=== PATIENT | female | born 1990 | race Hispanic/Latino ===

== ENCOUNTER 2023-01-02 11:22 | Inpatient (IN) | payer MEDICAID, SELFPAY ==
[2023-01-02] MEDS ORDERED: hydrALAZINE 20 MG/ML VIAL SLOW IVP PRN (11:57)
[2023-01-02 12:57] LABS: Fetal Membranes Rupture RUPTURE DETECTED (No Rupture)
[2023-01-02] MEDS ORDERED: Tranexamic Acid 1,000 MG/10 ML VIAL IVP PRN (13:17)
[2023-01-02] MEDS ORDERED: Carboprost 250 MCG/ML AMP IM PRN (13:17)
[2023-01-02] MEDS ORDERED: Methylergonovine 0.2 MG/ML VIAL IM PRN (13:17)
[2023-01-02] MEDS ORDERED: Promethazine HCl 25 MG/ML VIAL IM PRN (13:17)
[2023-01-02] MEDS ORDERED: Misoprostol 200 MCG TAB PR PRN (13:17)
[2023-01-02] MEDS ORDERED: Butorphanol Tartrate 1 MG/ML VIAL SLOW IVP PRN (13:17)
[2023-01-02] MEDS ORDERED: fentaNYL 50 mcg/mL 1 mL Vial SLOW IVP PRN (13:17)
[2023-01-02] MEDS ORDERED: Acetaminophen 500 MG TAB PO PRN ×2 (13:17→15:51)
[2023-01-02] MEDS ORDERED: Ondansetron PF 4 MG/2 ML Vial IVP PRN (13:17)
[2023-01-02] MEDS ORDERED: Diphenoxylate HCl/Atropine Tablet PO PRN (13:17)
[2023-01-02] MEDS ORDERED: Azithromycin 1,000 MG in Sodium Chloride 0.9% 250 ML 250 ML IVPB SCH (13:30)
[2023-01-02] MEDS ORDERED: Magnesium Sulfate 20 gm/500 ml 20 GM/500 ML BAG IVPB SCH (13:30)
[2023-01-02] MEDS ORDERED: Oxytocin 30 units/NS 500 ML 500 ML IV SCH (13:30)
[2023-01-02 13:57] VITALS: BMI 40.9
[2023-01-02] MEDS ORDERED: Magnesium Sulfate 20 gm/500 ml 20 GM/500 ML BAG ONE (14:49)
[2023-01-02] MEDS: Betamet Acet/Betamet Na Ph 30 MG/5 ML VIAL IM SCH (14:54)
[2023-01-02] MEDS: CEFAZOLIN 2 GM in Sodium Chloride 0.9% 100 ML IVPB SCH ×2 (14:55→23:00)
[2023-01-02] MEDS ORDERED: Azithromycin 1,000 MG, Admixture Fee 1 EACH in Sodium Chloride 0.9% 500 ML IVPB SCH (15:00)
[2023-01-02 15:48] LABS: #Eosinphils 0.1 10x3/uL (0.0-0.5); #Monocytes 0.4 10x3/uL (0.0-1.1); #Neutrophils 4.5 10x3/uL (1.5-8.4); %Basophils 0.2 % (0.0-2.0); %Lymphocytes 14.6 % (18.0-47.0); %Monocytes 6.4 % (0.0-10.0); %Neutrophils 77.5 % (40.0-75.0); Hematocrit 36.1 % (34.9-44.5); Hemoglobin 12.7 g/dL (12.0-15.5); Mean Corpuscular HGB CONC 35.2 g/dL (32.0-36.0); Mean Corpuscular Hemoglobin 32.8 pg (27.0-33.0); Mean Corpuscular Volume 93.3 fl (81.6-98.3); Mean Platelet Volume 10.6 fl (7.4-10.4); Platelet Count 249 10x3/uL (150-450); RBC Distribution Width 11.9 % (11.5-14.5); Red Blood Cell (RBC) Count 3.87 10x6/uL (3.90-5.03); White Blood Cell (WBC) Count 5.8 10x3/uL (3.5-10.5)
[2023-01-02] MEDS ORDERED: Indomethacin 25 mg Capsule PO PRN (15:53)
[2023-01-02] MEDS ORDERED: Lactated Ringer's 1,000 ML IV SCH (16:00)
[2023-01-02 16:18] LABS: Syphilis Antibody Nonreactive (Nonreactive); Syphilis Antibody Index 0.06 S/CO (<1.00 Non-Reactive)
[2023-01-02 16:19] LABS: HBSAg Index 0.14 S/CO (0-0.99); HIV (1/2) Antibody/Antigen Non-Reactive (NonReactive); HIV 1/2 INDEX 0.08 S/CO (<1.00); Hep B Surf Ag - L&D Non-Reactive S/CO (NonReactive)
[2023-01-03] MEDS: CEFAZOLIN 2 GM in Sodium Chloride 0.9% 100 ML IVPB SCH ×2 (06:18→15:27)
[2023-01-03] MEDS: Betamet Acet/Betamet Na Ph 30 MG/5 ML VIAL IM SCH (15:27)
[2023-01-03] MEDS: Lactated Ringer's 1,000 ML IV SCH (19:11)
[2023-01-04] MEDS: Lactated Ringer's 1,000 ML IV SCH ×2 (08:03→11:56)
[2023-01-04] MEDS: CEFAZOLIN 2 GM in Sodium Chloride 0.9% 100 ML IVPB SCH ×2 (08:17→09:37)
[2023-01-04] MEDS: Cephalexin 500 MG CAP PO SCH ×2 (17:20→21:50)
[2023-01-05] MEDS: Cephalexin 500 MG CAP PO SCH ×4 (08:56→21:36)
[2023-01-05] MEDS: Lactated Ringer's 1,000 ML IV SCH ×2 (19:38→19:39)
[2023-01-05] MEDS ORDERED: Docusate 100 MG CAP PO SCH (21:00)
[2023-01-05] MEDS: Docusate Calcium (SURFAK) 240 MG CAP PO SCH (21:36)
[2023-01-06] MEDS: Docusate Calcium (SURFAK) 240 MG CAP PO SCH ×2 (09:47→21:21)
[2023-01-06] MEDS: Cephalexin 500 MG CAP PO SCH ×2 (09:47→21:22)
[2023-01-07] MEDS: Lactated Ringer's 1,000 ML IV SCH ×3 (09:19→13:55)
[2023-01-07] MEDS: Cephalexin 500 MG CAP PO SCH ×5 (09:20→21:00)
[2023-01-07] MEDS: Docusate Calcium (SURFAK) 240 MG CAP PO SCH (09:45)
[2023-01-07] MEDS: Docusate 100 MG CAP PO SCH (21:00)
[2023-01-08] MEDS: Indomethacin 25 mg Capsule PO PRN ×3 (01:18→12:34)
[2023-01-08] MEDS: Cephalexin 500 MG CAP PO SCH ×4 (07:55→23:11)
[2023-01-08] MEDS: Docusate 100 MG CAP PO SCH ×2 (07:55→21:31)
[2023-01-08] MEDS ORDERED: NIFEdipine 10 MG CAP PO PRN (09:22)
[2023-01-08] MEDS: Lactated Ringer's 1,000 ML IV SCH ×2 (15:53→17:54)
[2023-01-08] MEDS: NIFEdipine 10 MG CAP PO PRN (21:31)
[2023-01-09] MEDS: NIFEdipine 10 MG CAP PO PRN ×2 (04:09→16:14)
[2023-01-09] MEDS: Lactated Ringer's 1,000 ML IV SCH ×5 (04:43→22:29)
[2023-01-09] MEDS ORDERED: Indomethacin 25 mg Capsule PO SCH (08:00)
[2023-01-09] MEDS: Cephalexin 500 MG CAP PO SCH ×2 (08:10→18:12)
[2023-01-09] MEDS ORDERED: fentaNYL 50 mcg/mL 1 mL Vial SLOW IVP PRN ×2 (10:01→16:48)
[2023-01-09] MEDS: Indomethacin 25 mg Capsule PO SCH ×3 (11:33→20:42)
[2023-01-09] MEDS: Docusate 100 MG CAP PO SCH ×2 (15:49→20:42)
[2023-01-09] MEDS ORDERED: Promethazine HCl 25 MG/ML VIAL IM PRN ×2 (16:48→22:32)
[2023-01-09] MEDS ORDERED: Lidocaine 1% (PF) 30 ML VIAL SC PRN (16:48)
[2023-01-09] MEDS ORDERED: Acetaminophen 500 MG TAB PO PRN (16:48)
[2023-01-09] MEDS ORDERED: hydrALAZINE 20 MG/ML VIAL SLOW IVP PRN (16:48)
[2023-01-09] MEDS ORDERED: Ondansetron PF 4 MG/2 ML Vial IVP PRN ×2 (16:48→22:32)
[2023-01-09] MEDS ORDERED: Oxytocin 30 units/NS 500 ML 500 ML IV SCH ×2 (17:00)
[2023-01-09] MEDS ORDERED: Naloxone HCl 0.4 mg/ml Vial IV PRN (17:02)
[2023-01-09 22:02] LABS: #Eosinphils 0.1 10x3/uL (0.0-0.5); #Monocytes 0.6 10x3/uL (0.0-1.1); #Neutrophils 11.7 10x3/uL (1.5-8.4); %Basophils 0.1 % (0.0-2.0); %Eosinophils 0.9 % (0.0-6.0); %Lymphocytes 10.2 % (18.0-47.0); %Monocytes 4.3 % (0.0-10.0); Hematocrit 36.7 % (34.9-44.5); Hemoglobin 12.9 g/dL (12.0-15.5); Mean Corpuscular HGB CONC 35.1 g/dL (32.0-36.0); Mean Corpuscular Hemoglobin 32.5 pg (27.0-33.0); Mean Corpuscular Volume 92.4 fl (81.6-98.3); Mean Platelet Volume 10.2 fl (7.4-10.4); Platelet Count 247 10x3/uL (150-450); Red Blood Cell (RBC) Count 3.97 10x6/uL (3.90-5.03)
[2023-01-09] MEDS ORDERED: fentaNYL/Ropivacaine Epidural 100 ML ONE (22:07)
[2023-01-09] MEDS ORDERED: Acetaminophen 325 MG TAB PO PRN (22:32)
[2023-01-09] MEDS ORDERED: Moisturizing Cream (Eucerin) 113 GM JAR TOP PRN (22:32)
[2023-01-09] MEDS ORDERED: ePHEDrine Sulfate 50 MG/10 ML VIAL SLOW IVP PRN (22:32)
[2023-01-09] MEDS ORDERED: Naloxone HCl 0.4 mg/ml Vial IVP PRN ×2 (22:32)
[2023-01-09] MEDS ORDERED: Lactated Ringer's 500 ML IV PRN (22:32)
[2023-01-09] MEDS ORDERED: diphenhydrAMINE 50 MG/ML VIAL IVP PRN (22:32)
[2023-01-09] MEDS ORDERED: fentaNYL 2 mcg/Ropivacaine 0.2% Epidural 100 ML CADD EPIDURAL SCH (22:45)
[2023-01-09] MEDS ORDERED: Communication Order-Pharmacy FS SCH (22:45)
[2023-01-09] MEDS ORDERED: Ondansetron PF 4 MG/2 ML Vial ONE (23:27)
[2023-01-09] MEDS ORDERED: Dexamethasone 4 mg/ml Vial ONE (23:27)
[2023-01-09] MEDS ORDERED: Morphine PF 10 MG/10 ML VIAL ONE (23:27)
[2023-01-09] MEDS ORDERED: CEFAZOLIN 2 GM VIAL ONE (23:29)
[2023-01-09] MEDS ORDERED: Azithromycin 500 MG VIAL ONE (23:29)
[2023-01-09] MEDS ORDERED: Oxytocin 10 UNITS/ML VIAL ONE (23:44)
[2023-01-10] MEDS ORDERED: Ketorolac Tromethamine 30 MG/ML VIAL ONE (00:02)
[2023-01-10] MEDS ORDERED: Moisturizing Cream (Eucerin) 113 GM JAR TOP PRN (00:32)
[2023-01-10] MEDS ORDERED: diphenhydrAMINE 50 MG/ML VIAL IVP PRN (00:32)
[2023-01-10] MEDS ORDERED: Meperidine HCl/PF 25 MG/ML VIAL SLOW IVP PRN (00:32)
[2023-01-10] MEDS ORDERED: fentaNYL 50 mcg/mL 1 mL Vial SLOW IVP PRN (00:32)
[2023-01-10] MEDS ORDERED: Morphine 4 MG/ML VIAL SLOW IVP PRN (00:32)
[2023-01-10] MEDS ORDERED: Naloxone HCl 0.4 mg/ml Vial IVP PRN ×2 (00:32)
[2023-01-10] MEDS ORDERED: Promethazine HCl 25 MG/ML VIAL IM PRN ×2 (00:32→03:00)
[2023-01-10] MEDS ORDERED: Ondansetron PF 4 MG/2 ML Vial IVP PRN ×3 (00:32→03:00)
[2023-01-10] MEDS ORDERED: Naloxone HCl 0.4 mg/ml Vial IV PRN (00:32)
[2023-01-10] MEDS ORDERED: Ketorolac Tromethamine 30 MG/ML VIAL IVP PRN ×2 (00:32→00:44)
[2023-01-10] MEDS ORDERED: Promethazine HCl 25 MG SUPP PR PRN (00:32)
[2023-01-10] MEDS ORDERED: Communication Order-Pharmacy FS SCH (00:45)
[2023-01-10] MEDS ORDERED: Ketorolac Tromethamine 30 MG/ML VIAL IVP SCH ×3 (00:45→06:30)
[2023-01-10] MEDS ORDERED: Bisacodyl 10 MG SUPP PR PRN (03:00)
[2023-01-10] MEDS ORDERED: diphenhydrAMINE 25 MG CAP PO PRN (03:00)
[2023-01-10] MEDS ORDERED: Lanolin Ointment 7 GM TUBE TOP PRN (03:00)
[2023-01-10] MEDS ORDERED: Boostrix 0.5 ML (Tdap) VIAL (>/=7 yrs of age) IM ONE (03:00)
[2023-01-10] MEDS ORDERED: hydrALAZINE 20 MG/ML VIAL SLOW IVP PRN (03:00)
[2023-01-10] MEDS: Cephalexin 500 MG CAP PO SCH (05:06)
[2023-01-10] MEDS: Indomethacin 25 mg Capsule PO SCH (05:07)
[2023-01-10] MEDS: Lactated Ringer's 1,000 ML IV SCH (05:07)
[2023-01-10] MEDS: Ferrous Sulfate 325 MG TAB PO SCH ×2 (08:43→21:28)
[2023-01-10] MEDS: Docusate 100 MG CAP PO SCH ×2 (08:55→20:35)
[2023-01-10] MEDS: Prenatal Vitamin 1 TAB PO SCH (08:55)
[2023-01-10] MEDS: Simethicone Chewable 80 MG TAB PO PRN (08:59)
[2023-01-10] MEDS: HYDROcodone/Acetaminophen 5/325 mg Tablet PO PRN ×3 (11:30→21:26)
[2023-01-10] MEDS ORDERED: Meperidine HCl/PF 25 MG/ML VIAL IM PRN (12:45)
[2023-01-10] MEDS ORDERED: Bupivacaine PF 0.5% 30 ML VIAL ONE (13:00)
[2023-01-10] MEDS ORDERED: Bupivacaine 0.25% HCL 30 ML VIAL ONE (13:00)
[2023-01-10] MEDS ORDERED: Lidocaine 2% MPF 10 ML AMP (For Epidural Use) ONE (13:00)
[2023-01-11] MEDS: HYDROcodone/Acetaminophen 5/325 mg Tablet PO PRN ×4 (03:27→20:16)
[2023-01-11 04:32] LABS: Hematocrit 33.3 % (34.9-44.5); Hemoglobin 11.5 g/dL (12.0-15.5); Mean Corpuscular HGB CONC 34.5 g/dL (32.0-36.0); Mean Corpuscular Hemoglobin 32.6 pg (27.0-33.0); Mean Corpuscular Volume 94.3 fl (81.6-98.3); Mean Platelet Volume 10.3 fl (7.4-10.4); Platelet Count 229 10x3/uL (150-450); RBC Distribution Width 12.3 % (11.5-14.5); Red Blood Cell (RBC) Count 3.53 10x6/uL (3.90-5.03)
[2023-01-11] MEDS: Ferrous Sulfate 325 MG TAB PO SCH ×2 (08:02→19:27)
[2023-01-11] MEDS: Ibuprofen 800 MG TAB PO PRN ×2 (08:26→21:49)
[2023-01-11] MEDS: Prenatal Vitamin 1 TAB PO SCH (08:27)
[2023-01-11] MEDS: Docusate 100 MG CAP PO SCH ×2 (08:27→21:50)
[2023-01-11] MEDS: Simethicone Chewable 80 MG TAB PO PRN (08:27)
[2023-01-12] MEDS: Ibuprofen 800 MG TAB PO PRN ×2 (05:25→13:58)
[2023-01-12 07:47] VITALS: BP 117/73; TEMP 98.6
[2023-01-12] MEDS: Docusate 100 MG CAP PO SCH (08:15)
[2023-01-12] MEDS: Prenatal Vitamin 1 TAB PO SCH (08:15)
[2023-01-12] MEDS: HYDROcodone/Acetaminophen 5/325 mg Tablet PO PRN (08:27)
== END 2023-01-12 15:25 | disposition home or self-care (01) | DRG 788 ==
LOC: CSHLD/OP 11:22 → CSHLD 13:48 → CSHPP 01-10 02:26
PROVIDERS: ADMIT Family Medicine; ATTEND Family Medicine
PROC: 10D00Z1 Extraction of Products of Conception, Low, Open Approach (ICD-10-PCS; principal; 2023-01-10)
DX: O42.013 Preterm premature rupture of membranes, onset of labor within 24 hours of rupture, third trimester (principal); O36.8130 Decreased fetal movements, third trimester, not applicable or unspecified; Z3A.30 30 weeks gestation of pregnancy; Z37.0 Single live birth; O32.6XX0 Maternal care for compound presentation, not applicable or unspecified
CPT/HCPCS: 51702; 76819; 84112; 85025; 85027; 86780; 86850; 86900; 86901; 87340; 87389; 87480; 87510; 87660; 88307; J0456; J0702; J1100; J1885; J2274; J2405; J2590; J3010; J3475; J3490; J7030; J7120; S0020

== ENCOUNTER 2023-01-18 23:24 | Inpatient (IN) | payer MEDICAID ==
[~2023-01-18 23:24] MED LIST: Iopamidol 300 61% 100 ML VIAL FS ONE
[2023-01-19] MEDS ORDERED: Morphine 4 MG/ML VIAL ONE (00:02)
[2023-01-19 00:17] LABS: ALT (SGPT) 17 U/L (8-55); AST (SGOT) 12 U/L (5-34); Albumin 3.4 g/dL (3.5-5.0); Alkaline Phosphatase 89 U/L (40-110); Anion Gap 16 mmol/L (10-20); BUN (Urea Nitrogen) 10 mg/dL (7.0-18.7); Bilirubin, Total 0.4 mg/dL (0.2-1.2); Calc. Creatinine Clearance 0 mL/min (70-130); Calcium 8.9 mg/dL (7.8-10.44); Carbon Dioxide 21 mmol/L (22-29); Chloride 105 mmol/L (98-107); Estimated GFR 121; Globulin 3.7 g/dL (2.4-3.5); Glucose 89 mg/dL (70-105); Lipase 5 U/L (8-78); Potassium 3.5 mmol/L (3.5-5.1); Protein, Total 7.1 g/dL (6.0-8.3); Sodium 138 mmol/L (136-145)
[2023-01-19 00:20] LABS: BHCG - Serum Negative (NEGATIVE); Pregs Control Background? CLEAR/WHITE (CLR/WHITE); Pregs Control Bar Appear? YES (CONTROL BAR)
[2023-01-19 00:26] LABS: #Eosinphils 0.2 10x3/uL (0.0-0.5); #Monocytes 0.5 10x3/uL (0.0-1.1); #Neutrophils 10.5 10x3/uL (1.5-8.4); %Basophils 0.2 % (0.0-2.0); %Eosinophils 1.3 % (0.0-6.0); %Lymphocytes 13.3 % (18.0-47.0); %Monocytes 3.5 % (0.0-10.0); Hematocrit 35.7 % (34.9-44.5); Hemoglobin 12.6 g/dL (12.0-15.5); Mean Corpuscular HGB CONC 35.3 g/dL (32.0-36.0); Mean Corpuscular Hemoglobin 32.6 pg (27.0-33.0); Mean Corpuscular Volume 92.2 fl (81.6-98.3); Mean Platelet Volume 8.9 fl (7.4-10.4); Platelet Count 379 10x3/uL (150-450); RBC Distribution Width 11.5 % (11.5-14.5); Red Blood Cell (RBC) Count 3.87 10x6/uL (3.90-5.03)
[2023-01-19] MEDS ORDERED: Cefepime 2 GM VIAL ONE (01:44)
[2023-01-19 02:13] LABS: Bilirubin Neg (Negative); Blood, Urine 150 (Negative); Clarity Clear (Clear); Glucose, Urine (Dipstick) Normal (Negative); Ketone, Urine Negative (Negative); Leukocyte 25 (Negative); Nitrite Negative (Negative); Protein, Urine (Dipstick) 15 mg/dl (Neg-Trace); Specific Gravity, Urine 1.005 (1.005-1.030); Urobilinogen Normal mg/dL (Less than 2)
[2023-01-19] MEDS ORDERED: Vancomycin 1 GM VIAL ONE (02:18)
[2023-01-19 02:30] LABS: Bacteria/HPF None Seen HPF (None Seen); CAUTI Indications for Culture Pelvic or flank pain; Squamous Epithelial 0-3 HPF (0-3); WBC/HPF 0-3 HPF (0-3)
[2023-01-19 02:31] LABS: RBC/HPF 0-3 HPF (0-3); Urine Culture Reflex No No
[2023-01-19] MEDS ORDERED: Ondansetron PF 4 MG/2 ML Vial IVP PRN ×2 (03:54→08:34)
[2023-01-19] MEDS ORDERED: Ondansetron ODT 4 MG TAB PO PRN (03:54)
[2023-01-19] MEDS ORDERED: Acetaminophen 325 MG TAB PO PRN (03:55)
[2023-01-19] MEDS ORDERED: Sodium Chloride 0.9% 1,000 ML IV SCH (04:00)
[2023-01-19] MEDS ORDERED: FLU VACC QS2023-24(6MOS UP)/PF 60 MCG/0.5 ML SYRINGE IM ONE (05:45)
[2023-01-19] MEDS: Morphine 2 MG/ML VIAL SLOW IVP PRN ×2 (06:18→08:33)
[2023-01-19] MEDS ORDERED: Promethazine HCl 25 MG/ML VIAL IM PRN (08:34)
[2023-01-19] MEDS ORDERED: Acetaminophen 500 MG TAB PO PRN (08:34)
[2023-01-19] MEDS ORDERED: hydrALAZINE 20 MG/ML VIAL SLOW IVP PRN (08:34)
[2023-01-19] MEDS ORDERED: Vancomycin 1 GM in Sodium Chloride 0.9% 250 ML 250 ML IVPB SCH (09:00)
[2023-01-19] MEDS ORDERED: Piperacillin/Tazobactam 3.375 GM in Sodium Chloride 0.9% 100 ML IVPB SCH (09:00)
[2023-01-19] MEDS: HYDROcodone/Acetaminophen 5/325 mg Tablet PO PRN ×3 (09:25→20:28)
[2023-01-19] MEDS: Ibuprofen 800 MG TAB PO SCH ×2 (09:25→18:13)
[2023-01-19] MEDS: VANCOMYCIN 1.25 GM/250 ML BAG 1.25 GM in Premix 1 BAG IVPB SCH ×2 (10:07→21:48)
[2023-01-19] MEDS: Piperacillin/Tazobactam 3.375 GM in Sodium Chloride 0.9% 100 ML IVPB SCH ×2 (14:01→21:48)
[2023-01-20] MEDS: Ibuprofen 800 MG TAB PO SCH ×3 (01:42→17:05)
[2023-01-20] MEDS: Piperacillin/Tazobactam 3.375 GM in Sodium Chloride 0.9% 100 ML IVPB SCH ×3 (04:54→21:11)
[2023-01-20] MEDS ORDERED: Milk Of Magnesia 30 ML UDCUP PO SCH (09:45)
[2023-01-20] MEDS: VANCOMYCIN 1.25 GM/250 ML BAG 1.25 GM in Premix 1 BAG IVPB SCH (10:07)
[2023-01-20] MEDS: HYDROcodone/Acetaminophen 5/325 mg Tablet PO PRN (13:27)
[2023-01-20 20:37] LABS: Vancomycin, Trough 9.2 ug/mL
[2023-01-20] MEDS: Vancomycin 1.5 GRAM/300 ML BAG 1.5 GM in Premix 1 BAG IVPB SCH (21:27)
[2023-01-21] MEDS: HYDROcodone/Acetaminophen 5/325 mg Tablet PO PRN ×3 (00:44→20:18)
[2023-01-21] MEDS: Ibuprofen 800 MG TAB PO SCH ×3 (00:45→17:29)
[2023-01-21] MEDS: Piperacillin/Tazobactam 3.375 GM in Sodium Chloride 0.9% 100 ML IVPB SCH ×3 (05:05→21:47)
[2023-01-21] MEDS: Milk Of Magnesia 30 ML UDCUP PO SCH (09:58)
[2023-01-21] MEDS: Vancomycin 1.5 GRAM/300 ML BAG 1.5 GM in Premix 1 BAG IVPB SCH ×2 (09:58→21:48)
[2023-01-22] MEDS: Ibuprofen 800 MG TAB PO SCH ×3 (01:54→17:39)
[2023-01-22] MEDS: Piperacillin/Tazobactam 3.375 GM in Sodium Chloride 0.9% 100 ML IVPB SCH ×3 (04:59→21:40)
[2023-01-22] MEDS: HYDROcodone/Acetaminophen 5/325 mg Tablet PO PRN ×2 (05:03→18:49)
[2023-01-22 05:18] LABS: #Basophils 0.1 10x3/uL (0.0-0.2); #Eosinphils 0.4 10x3/uL (0.0-0.5); #Monocytes 0.6 10x3/uL (0.0-1.1); #Neutrophils 6.2 10x3/uL (1.5-8.4); %Basophils 0.5 % (0.0-2.0); %Eosinophils 4.7 % (0.0-6.0); %Lymphocytes 20.6 % (18.0-47.0); %Monocytes 6.5 % (0.0-10.0); %Neutrophils 66.2 % (40.0-75.0); Hematocrit 27.1 % (34.9-44.5); Hemoglobin 9.2 g/dL (12.0-15.5); Mean Corpuscular HGB CONC 33.9 g/dL (32.0-36.0); Mean Corpuscular Hemoglobin 32.5 pg (27.0-33.0); Mean Corpuscular Volume 95.8 fl (81.6-98.3); Mean Platelet Volume 8.9 fl (7.4-10.4); Platelet Count 427 10x3/uL (150-450); RBC Distribution Width 11.5 % (11.5-14.5); Red Blood Cell (RBC) Count 2.83 10x6/uL (3.90-5.03); White Blood Cell (WBC) Count 9.4 10x3/uL (3.5-10.5)
[2023-01-22 08:45] LABS: Vancomycin, Trough 13.2 ug/mL
[2023-01-22] MEDS: Milk Of Magnesia 30 ML UDCUP PO SCH (10:02)
[2023-01-22] MEDS: Vancomycin 1.5 GRAM/300 ML BAG 1.5 GM in Premix 1 BAG IVPB SCH ×2 (10:04→21:48)
[2023-01-22] MEDS ORDERED: Iopamidol 300 61% 100 ML VIAL FS ONE (10:16)
[2023-01-22] MEDS ORDERED: Fluconazole In NaCl,Iso-Osm 200 MG in Premix 1 BAG IVPB SCH (12:00)
[2023-01-22] MEDS: Docusate 100 MG CAP PO PRN (17:38)
[2023-01-23] MEDS: Ibuprofen 800 MG TAB PO SCH ×3 (00:51→17:23)
[2023-01-23] MEDS: Piperacillin/Tazobactam 3.375 GM in Sodium Chloride 0.9% 100 ML IVPB SCH ×3 (05:41→22:01)
[2023-01-23] MEDS: Milk Of Magnesia 30 ML UDCUP PO SCH (08:28)
[2023-01-23] MEDS: Vancomycin 1.5 GRAM/300 ML BAG 1.5 GM in Premix 1 BAG IVPB SCH ×2 (08:28→22:04)
[2023-01-24] MEDS: Docusate 100 MG CAP PO PRN (01:28)
[2023-01-24] MEDS: Ibuprofen 800 MG TAB PO SCH ×3 (01:28→19:20)
[2023-01-24] MEDS: Piperacillin/Tazobactam 3.375 GM in Sodium Chloride 0.9% 100 ML IVPB SCH ×2 (05:54→13:21)
[2023-01-24] MEDS: Milk Of Magnesia 30 ML UDCUP PO SCH (08:54)
[2023-01-24] MEDS: Vancomycin 1.5 GRAM/300 ML BAG 1.5 GM in Premix 1 BAG IVPB SCH (08:54)
[2023-01-24] MEDS: Amoxicillin/Potassium Clav 875 MG TAB PO SCH (21:36)
[2023-01-25] MEDS: Ibuprofen 800 MG TAB PO SCH ×3 (03:50→20:06)
[2023-01-25] MEDS: Amoxicillin/Potassium Clav 875 MG TAB PO SCH ×2 (08:09→20:06)
[2023-01-25] MEDS: Milk Of Magnesia 30 ML UDCUP PO SCH (08:10)
[2023-01-25 20:39] VITALS: BP 114/60; TEMP 98.1
== END 2023-01-25 20:31 | disposition home or self-care (01) | DRG 776 ==
LOC: CSHERS 23:24 → CSHPED 01-19 02:31
PROVIDERS: ADMIT Family Medicine; ATTEND Family Medicine
DX: O86.00 Infection of obstetric surgical wound, unspecified (principal); O12.05 Gestational edema, complicating the puerperium; O99.63 Diseases of the digestive system complicating the puerperium; G89.18 Other acute postprocedural pain; O90.89 Other complications of the puerperium, not elsewhere classified; B96.89 Other specified bacterial agents as the cause of diseases classified elsewhere; Z88.0 Allergy status to penicillin
CPT/HCPCS: 36415; 72193; 74177; 80053; 80202; 81001; 83605; 83690; 84703; 85025; 87040; 87070; 87077; 87186; 87205; 93005; J0692; J1450; J2270; J2272; J2543; J3370; J3490; J7050; Q9967

== ENCOUNTER 2024-12-26 13:16 | Outpatient (CLI) | payer OTHER | END 2024-12-26 13:17 | disposition home or self-care (01) | LOC: CSHULT 13:16 | DX: O09.92 Supervision of high risk pregnancy, unspecified, second trimester (principal); Z3A.22 22 weeks gestation of pregnancy | CPT/HCPCS: 76805 ==